=== PATIENT | female | born 1950 | race Caucasian/White ===

== ENCOUNTER 2022-05-14 09:36 | Day surgery (SDC) | payer OTHER, MEDICARE ==
[2022-05-14 09:34] LABS: Absolute Lymphocytes (CBC) 2.8 K/uL (0.7-4.9); Hematocrit 31.6 % (36.0-45.0); Lymphocytes % 23.6 % (15.3-44.8); RBC Red Blood Cell Count 3.76 M/uL (3.86-4.86)
[2022-05-14 09:46] LABS: SARS-CoV-2 Antigen Rapid Res Negative (Negative)
--- NOTE | 2022-05-14 09:51 | RAD REPORT ---
EXAM DESCRIPTION: RAD - Chest Pa And Lat (2 Views) - 05/14/2022 9:32 am CLINICAL HISTORY: pre op pending PD catheter palcement COMPARISON: No comparisons FINDINGS: Lines: None. Lungs: No evidence of edema or pneumonia. Pleural: No significant pleural effusions or pneumothorax. Cardiac: The heart size is within normal limits. Bones: No acute fractures. Other: IMPRESSION: No acute cardiopulmonary disease.
[2022-05-14] MEDS ORDERED: BUPIVACAINE 0.25% PF 30 ML VIAL ONE (09:57)
[2022-05-14] MEDS ORDERED: NA CHLORIDE 0.9% 1,000 ML ONE (09:57)
[2022-05-14 09:59] LABS: Potassium 4.9 mmol/L (3.5-5.1)
[2022-05-14] MEDS ORDERED: NA CHLORIDE 0.9% 500 ML ONE (09:59)
[2022-05-14] MEDS ORDERED: CEFAZOLIN 2 GM IN 0.9% NACL 2 GM/100 ML BAG ONE (10:00)
[2022-05-14] MEDS ORDERED: propofoL 200 MG/20 ML VIAL IV ONE (10:11)
[2022-05-14] MEDS ORDERED: MIDAZOLAM HCL 2 MG/2 ML INJ ONE (10:12)
[2022-05-14] MEDS ORDERED: FENTANYL CITR 100 MCG/2 ML ONE (10:12)
[2022-05-14] MEDS ORDERED: ROCURONIUM 50 MG/5 ML VIAL IV ONE (10:12)
[2022-05-14] MEDS ORDERED: ONDANSETRON 4 MG/2 ML VIAL ONE (10:14)
[2022-05-14] MEDS ORDERED: LIDOCAINE 1% MPF 2 ML AMPULE ONE (10:14)
[2022-05-14] MEDS: HEPARIN 500 UNIT/5 ML SYR IV ONE ×2 (11:02→11:54)
--- NOTE | 2022-05-14 11:50 | P.OP ---
Preoperative diagnosis: Need For Dialysis Postoperative diagnosis: Need For Dialysis Primary procedure: Laparoscopic Peritoneal Dialysis Catheter placement Secondary procedure: Laparoscopic adhesiolysis > 45 min Anesthesia: GETA + Local Estimated blood loss: <10cc Specimen: none Findings: significant intra-abdominal adhesions, large omentum Complications: None Drain(s): Other (Merrit Double Cuffed PD catheter) Transferred to: Recovery Room Condition: Good
[2022-05-14] MEDS ORDERED: NEOSTIGMINE 1 MG/ML -10 ML VIAL ONE (12:04)
[2022-05-14] MEDS ORDERED: GLYCOPYRROLATE 0.2 MG/ML SYR ONE (12:04)
--- NOTE | 2022-05-14 12:45 | OP ---
Date of Procedure: 05/14/2022 Surgeon: Leif Gilman MD, Preoperative Diagnosis: End-stage renal disease and need for dialysis. Postoperative Diagnosis: End-stage renal disease and need for dialysis. Procedures Performed: 1.Laparoscopic placement of Merit double-cuffed peritoneal dialysis catheter. 2.Laparoscopic adhesiolysis greater than 45 minutes, approximately 1 hour of adhesiolysis performed. Anesthesia: General endotracheal plus local with 0.25% Marcaine. Estimated Blood Loss: Less than 10 cc. Specimen: None. Findings: Significant intraabdominal adhesions, large omentum which is pendulous. Complications: None. Drains: A Merit standard double-cuffed peritoneal dialysis catheter. Disposition: The patient was transferred to the recovery room in good condition at the end of the pr ocedure. Procedure In Detail: After informed consent was obtained, the patient was prepped and draped in the usual sterile fashion after adequate anesthesia achieved to the left upper quadrant. The area was ap propriately anesthetized, sharply incised. A 5 mm trocar was placed under direct visualization witho ut evidence of complication. Insufflation was obtained to 15 mmHg. There was no injury upon entry i nto the abdomen of any vital structures. Inspection noted that there were significant intraabdominal adhesions to the anterior abdominal wall, predominantly from the omentum as well as some small loop of bowels, but the small bowels were not in close apposition to the abdominal wall. These adhesions were taken down throughout the procedure after placement of a second trocar. A second trocar was luz josé luis in the left lower quadrant. This similarly anesthetized, sharply incised. A 5 mm trocar was luz josé luis under direct visualization without evidence of complication. The LigaSure device was then used t o take down the adhesions on the anterior abdominal wall off the omentum and multiple loops of small bowel, which were not in tight apposition to the anterior abdominal wall after the omentum was mobili zed off the anterior abdominal wall down to the pelvis. The previously stenciled Merit peritoneal di alysis catheter was brought in appropriately and using a left-sided approach following the previously placed stencil jacobo, I made an incision in the skin angling the introducer sheath at a 45-degree an gle. I introduced the sheath without evidence of complication. I then dilated up the tract and plac ed the peritoneal dialysis catheter coiling medially into the pelvis at a 45-degree angle with the cu ff completely placed in the rectus muscle. I then clamped the end and placed on the tunneling device , made a counter incision in the previously stenciled area of the left abdominal wall and tunneled th e catheter to bring it out through this exit site at this point. There were no kinks in the catheter . It was flowing with air quite easily at the end. A cap was placed on the end of this. I then lef t the patient in neutral position and infused approximately 1 L of normal saline into the patient's p eritoneum and returned approximately 700 cc of it. The omentum was pendulous and dependent. The man euvers such as repositioning of the patient's and the head up position and placing gentle pressure on the abdomen were required to get the entire 700 cc out. The catheter was then packed with heparin s uper flush and abdomen was desufflated at this point. All skin incisions were then copiously irrigat ed and closed with 4-0 Monocryl in running fashion. Dermabond placed over top. The patient tolerate d the procedure well without evidence of complication and transferred to PACU in good condition. All counts were correct at the end of the case. TK/MODL Voice ID: [id number] Report ID: [id number]
[2022-05-14] MEDS ORDERED: HYDROCODONE/APAP 7.5/325 MG TAB ONE (13:14)
[2022-05-14 13:32] VITALS: BP 136/57; TEMP 96.9; O2SAT 99
--- NOTE | 2022-05-14 14:28 | EKG ---
Test Date: 2022-05-14 Test Time: 09:13:03 [employer]: JOSÉ MEASUREMENT RESULTS: Intervals: Rate: 78 WI: 186 QRSD: 72 QT: 410 QTc: 467 [place]: P: 7 WI: 186 QRS: 15 T: 70 INTERPRETIVE STATEMENTS: Normal sinus rhythm Low voltage QRS Borderline ECG No previous ECG available for comparison Electronically Signed On 05-14-22 14:27:18 CDT by Vincent Rizzo
--- NOTE | 2022-05-18 14:20 | EKG ---
Test Date: 2022-05-14 Test Time: 09:15:17 Software Engineering Associate Manager: JOSÉ MEASUREMENT RESULTS: Intervals: Rate: 78 IN: 212 QRSD: 64 QT: 400 QTc: 456 [place]: P: 82 IN: 212 QRS: 15 T: 60 INTERPRETIVE STATEMENTS: Sinus rhythm with 1st degree AV block Low voltage QRS Borderline ECG Compared to ECG 05/14/2022 09:13:03 First degree AV block now present Electronically Signed On 05-18-22 14:19:38 CDT by Vincent Rizzo
== END 2022-05-14 13:29 | disposition home or self-care (01) ==
LOC: OR 09:36
PROVIDERS: ATTEND Surgery
PROC: 0WHG43Z Insertion of Infusion Device into Peritoneal Cavity, Percutaneous Endoscopic Approach (ICD-10-PCS; principal; 2022-05-14 10:45)
DX: N18.6 End stage renal disease (principal); F41.8 Other specified anxiety disorders; I10 Essential (primary) hypertension; E11.9 Type 2 diabetes mellitus without complications; Z99.2 Dependence on renal dialysis; Z20.822 Contact with and (suspected) exposure to COVID-19
CPT/HCPCS: 93005 ×2; 85025; 80048; 36415; 82947; 71046; 87811; 49324; J2704; J2710; J2250; J3010; J0690; J1642; J7040; J7030; J2405; C1752